=== PATIENT | male | born 1980 | race Caucasian/White ===

== ENCOUNTER 2018-04-28 02:55 | Emergency (ER) | payer OTHER ==
[~2018-04-28] VITALS: Ht 175.3 cm; Wt 81.8 kg
[2018-04-28] MEDS ORDERED: METH10SO PO (03:11)
[2018-04-28] MEDS ORDERED: FAMOTIDINE 10 MG/ML 2 ML VIAL IVP ONE (03:45)
[2018-04-28] MEDS ORDERED: MethylPREDNISolone SOD SUCC 125 MG/2 ML VIAL IVP ONE (03:45)
[2018-04-28] MEDS ORDERED: ALBUTEROL SULFATE 2.5 MG/0.5 ML NEB SOLUTION NEB ONE (04:00)
[2018-04-28] MEDS ORDERED: 0.9% SODIUM CHLORIDE 5 ML NEB SOLUTION NEB ONE ×2 (04:03)
[2018-04-28 05:55] VITALS: BP 118/72
== END 2018-04-28 06:13 | disposition home or self-care (01) ==
LOC: EMS 02:55
DX: L50.0 Allergic urticaria (principal); F19.10 Other psychoactive substance abuse, uncomplicated; R06.02 Shortness of breath; F17.210 Nicotine dependence, cigarettes, uncomplicated; F11.90 Opioid use, unspecified, uncomplicated
CPT/HCPCS: 94640; 96374; 96375; 99284; J2930; J3490; J7613

== ENCOUNTER 2018-12-26 00:51 | Emergency (ER) | payer OTHER ==
[~2018-12-26] VITALS: Ht 175.3 cm; Wt 81.8 kg
[~2018-12-26 00:51] MED LIST: METH10SO PO
[2018-12-26] MEDS ORDERED: 0.9% SODIUM CHLORIDE 5 ML NEB SOLUTION NEB ONE (01:10)
[2018-12-26] MEDS ORDERED: FAMOTIDINE 10 MG/ML 2 ML VIAL IVP ONE (01:15)
[2018-12-26] MEDS ORDERED: ALBUTEROL SULFATE 2.5 MG/0.5 ML NEB SOLUTION NEB ONE (01:15)
[2018-12-26] MEDS ORDERED: MethylPREDNISolone SOD SUCC 125 MG/2 ML VIAL IVP ONE (01:15)
[2018-12-26] MEDS ORDERED: DiphenhydrAMINE HCL 50 MG/ML VIAL IVP ONE (01:15)
[2018-12-26 03:08] VITALS: BP 137/82
== END 2018-12-26 03:11 | disposition home or self-care (01) ==
LOC: EMS 00:53
DX: T78.1XXA Other adverse food reactions, not elsewhere classified, initial encounter (principal); F17.210 Nicotine dependence, cigarettes, uncomplicated; F11.90 Opioid use, unspecified, uncomplicated; F19.90 Other psychoactive substance use, unspecified, uncomplicated; X58.XXXA Exposure to other specified factors, initial encounter
CPT/HCPCS: 94640; 96374; 96375; 99283; J1200; J2930; J3490

== ENCOUNTER 2024-05-18 00:15 | Emergency (ER) | payer MEDICAID, OTHER ==
[~2024-05-18] VITALS: Ht 175.3 cm; Wt 84.1 kg
[2024-05-18 01:26] VITALS: BP 156/74; PULSE 94; RESP 18; TEMP 99; O2SAT 99
[2024-05-18] MEDS: ONDANSETRON 4 MG TABLET PO ONE (02:48)
[2024-05-18 03:30] LABS: BASOPHILS % (AUTO) 0.2 % (0.0-2.0); EOSINOPHILS % (AUTO) 0.6 % (1.0-6.0); HEMATOCRIT 43.8 % (41-53); HEMOGLOBIN 14.8 g/dL (13.5-17.5); LYMPHOCYTES # (AUTO) 0.7 K/uL (1.0-4.8); LYMPHOCYTES % (AUTO) 7.1 % (22.0-44.0); MEAN CORPUSCULAR HEMOGLOBIN 30.7 pg (26.0-34.0); MEAN CORPUSCULAR HGB CONC 33.8 G/dL (31.0-37.0); MEAN CORPUSCULAR VOLUME 91 fL (80-100); MONOCYTES # (AUTO) 0.6 K/uL (0.1-1.0); MONOCYTES % (AUTO) 5.9 % (2.0-9.0); NEUTROPHILS # (AUTO) 8.6 K/uL (1.8-7.7); PLATELET COUNT (AUTO) 305 K/uL (150-450); RED BLOOD CELL COUNT(AUTO) 4.83 MIL/uL (4.50-5.90); RED CELL DISTRIBUTION WIDTH 13.9 % (11.5-14.5)
[2024-05-18 03:34] LABS: NEUTROPHILS % (AUTO) 86.2 % (40.0-70.0)
[2024-05-18 03:40] LABS: ANION GAP 9 mmol/L (8-16); CALCIUM, TOTAL 8.2 mg/dL (8.8-10.5); CARBON DIOXIDE 27 mmol/L (22-29); CHLORIDE 98 mmol/L (98-107); GLOMERULAR FILTR. RATE CALC > 60 mL/min (>60); GLUCOSE,RANDOM 93 mg/dL (70-110); POTASSIUM 3.2 mmol/L (3.5-5.1); SODIUM SERUM 134 mmol/L (136-145); UREA NITROGEN, BLOOD 16 mg/dL (7-18)
[2024-05-18 03:46] LABS: ALANINE AMINOTRANSFERASE 26 U/L (12-78); ALBUMIN 3.4 g/dL (3.4-5.0); ALKALINE PHOSPHATASE 106 U/L (46-116); ASPARTATE AMINOTRANSFERASE 23 U/L (15-37); BILIRUBIN,TOTAL 1.1 mg/dL (0.1-1.0); TOTAL PROTEIN, SERUM 7.8 g/dL (6.4-8.2)
[2024-05-18 04:55] LABS: ALCOHOL, URINE DRUG SCREEN NEGATIVE (NEGATIVE); AMPHET/METH SCREEN,URINE POSITIVE (NEGATIVE); BARBITURATE SCREEN, URINE NEGATIVE (NEGATIVE); BENZODIAZEPINES SCREEN,URINE NEGATIVE (NEGATIVE); CANNABINOID SCREEN,URINE NEGATIVE (NEGATIVE); COCAINE SCREEN,URINE NEGATIVE (NEGATIVE); METHADONE SCREEN, URINE NEGATIVE (NEGATIVE); OPIATE SCREEN,URINE NEGATIVE (NEGATIVE); PHENCYCLIDINE SCREEN,URINE NEGATIVE (NEGATIVE)
[2024-05-18] MEDS ORDERED: ONDA-104 PO (05:03)
[2024-05-18] MEDS: POTASSIUM CHLORIDE 20 MEQ ER TABLET PO ONE (05:29)
== END 2024-05-18 05:43 | disposition home or self-care (01) ==
LOC: EMS 00:15
DX: T40.411A Poisoning by fentanyl or fentanyl analogs, accidental (unintentional), initial encounter (principal); F17.210 Nicotine dependence, cigarettes, uncomplicated; F15.90 Other stimulant use, unspecified, uncomplicated; E87.6 Hypokalemia; Y92.89 Other specified places as the place of occurrence of the external cause
CPT/HCPCS: 99283; 80048; 80076; 85025; 36415; 80307; Q0162